=== PATIENT | male | born 1990 | race African-American/Black ===

== ENCOUNTER 2021-05-28 16:08 | Emergency (ER) | payer OTHER ==
[~2021-05-28] VITALS: Ht 185.4 cm; Wt 95.5 kg
--- NOTE | 2021-05-28 16:41 | REP ---
INDICATION: trauma. COMPARISON: None. TECHNIQUE: CT BRAIN PERFORMED IN THE AXIAL PLANE. CORONAL RECONSTRUCTION IMAGES ARE PERFORMED. FINDINGS: THE PLAYGROUND EQUIPMENT ERECTOR IMAGE SHOWS 3 SCALP KEVIN OVERLYING THE POSTERIOR LEFT FRONTAL PARIETAL JUNCTION. THE VENTRICLES ARE NORMAL IN SIZE AND POSITION. THERE IS NO MIDLINE SHIFT OR MASS EFFECT. SHEN-WHITE DIFFERENTIATION IS WELL MAINTAINED. THERE IS NO ACUTE INTRACRANIAL HEMORRHAGE OR EXTRA-AXIAL FLUID COLLECTION. BONE WINDOW EXAMINATION IS UNREMARKABLE. VISUALIZED MASTOID AIR CELLS AND PARANASAL SINUSES ARE CLEAR. IMPRESSION: NEGATIVE NONCONTRAST CT BRAIN. <Electronically signed by Lobo Goodwin > 05/28/21 [id number]
[2021-05-28] MEDS ORDERED: METOCLOPRAMIDE 10 MG TAB PO ONE (18:20)
[2021-05-28] MEDS ORDERED: NAPROXEN 250 MG TAB PO ONE (18:20)
[2021-05-28 18:31] VITALS: BP 129/61
== END 2021-05-28 18:32 | disposition home or self-care (01) ==
LOC: M ED 16:08 → EDBD 16:08 → M ED 18:32
DX: S06.0X0A Concussion without loss of consciousness, initial encounter (principal); S01.01XA Laceration without foreign body of scalp, initial encounter; W22.8XXA Striking against or struck by other objects, initial encounter; Y92.89 Other specified places as the place of occurrence of the external cause; Y99.0 Civilian activity done for income or pay

== ENCOUNTER 2021-12-01 18:34 | Emergency (ER) | payer OTHER ==
[~2021-12-01] VITALS: Ht 182.9 cm; Wt 96.4 kg
[2021-12-01 18:35] VITALS: BP 139/90
[2021-12-01] MEDS ORDERED: ACET-683 PO (18:57)
[2021-12-01] MEDS ORDERED: IBUP1TAB7 PO (18:57)
== END 2021-12-01 20:34 | disposition left against medical advice (07) ==
LOC: M ED 18:34
DX: Z53.21 Procedure and treatment not carried out due to patient leaving prior to being seen by health care provider (principal)